=== PATIENT | male | born 1945 | race Caucasian/White ===

== ENCOUNTER → 2018-10-22 | Outpatient (CLI) | payer MEDICARE ==
[2018-10-22 14:38] LABS: Microalbumin, Urine Quant. 14.9 mg/L (0.000-20.000)
== END | disposition home or self-care (01) ==
LOC: LAB SHORT 09:33 → LAB 09:33
PROVIDERS: Internal Medicine
DX: Z12.5 Encounter for screening for malignant neoplasm of prostate (principal); E78.5 Hyperlipidemia, unspecified; E11.9 Type 2 diabetes mellitus without complications
CPT/HCPCS: 81050; 82043

== ENCOUNTER 2025-02-01 09:21 | Day surgery (SDC) | payer OTHER ==
[~2025-02-01] VITALS: Ht 170.2 cm; Wt 74.0 kg
[~2025-02-01 09:21] MED LIST: ALOGLIPTIN25 M1 PO; AMLO5 PO; ASPI81CH PO; ATOR40TA PO; Aspir 8181 MG PO; BASAGLAR K100 UNIT/1; Balanced Salt Epinephrine Irrigation Solution 500 mL IR SCH; CLOP75 PO; Diazepam 2 MG Tab PO PRN; JANUMET 50-1,01 EACH PO; LISI10 PO; LISINOPRIL-HCT1 EAC1 PO; Levitra20 MG PO; Lidocaine HCl/Pf 1% 5 ML VIAL XX SCH; METFORMIN HCL500 M2 PO; METO10 PO; Moxifloxacin HCL 0.5 MG/0.1 ML 0.4MLSYR RIGHTEYE SCH; OMEP20ER PO; Ondansetron 4 MG SoluTab MM PRN; PHENYLEPHRINE\\TROPICAMIDE\\TETRACAINE OPHTHALMIC DILATING SOLN RIGHTEYE PRN; PRAVACHOL20 MG PO; PRAVASTATIN SOD20 MG PO; Povidone-Iodine 450 DROP/30 ML Solution ONE; Povidone-Iodine 450 DROP/30 ML Solution RIGHTEYE SCH; Prinivil10 MG PO; SYNJARDY 12.5-1 EAC3 PO; Tetracaine HCl/Pf 0.5% Opth Soln 4 ml ONE; diazePAM 5 MG,diazePAM 2 MG PO SCH
[2025-02-01] MEDS ORDERED: Diazepam 2 MG Tab ONE (09:50)
[2025-02-01] MEDS ORDERED: Diazepam 5 MG Tab ONE (09:51)
--- NOTE | 2025-02-01 10:13 | NUR ---
02/01/25 1013 Narendra Kimball CALL LIGHT WITHIN REACH. TETRACAIN IN RIGHT EYE AT 1008 IKER IN AT 1010
--- NOTE | 2025-02-01 11:08 | NUR ---
02/01/25 1108 Daylin Inman BP-123/[id number] [id number]
--- NOTE | 2025-02-01 11:49 | NUR ---
02/01/25 1149 JANAK MORENO PT SON AND IN FOR DC INSTRUCTINS. COPY OF DC INSTRUCTIONS GIVEN TO SON WELL PT VERY MI'KMAQ AND APPEARS TO HAVE ISSUES WITH MEMORY. ALL VERY PLEASANT
[2025-02-01 11:50] VITALS: BP 125/68
== END 2025-02-01 11:48 | disposition home or self-care (01) ==
LOC: ORSCSDS 09:21
PROVIDERS: Student in an Organized Health Care Education/Training Program
PROC: 08RJ3JZ Replacement of Right Lens with Synthetic Substitute, Percutaneous Approach (ICD-10-PCS; principal; 2025-02-01 11:00)
DX: E11.36 Type 2 diabetes mellitus with diabetic cataract (principal); H25.813 Combined forms of age-related cataract, bilateral; H35.3221 Exudative age-related macular degeneration, left eye, with active choroidal neovascularization; H52.201 Unspecified astigmatism, right eye; Z87.891 Personal history of nicotine dependence; H35.3112 Nonexudative age-related macular degeneration, right eye, intermediate dry stage; Z79.899 Other long term (current) drug therapy
CPT/HCPCS: 82947; A9270; V2632

== ENCOUNTER 2025-02-06 13:43 | Emergency (ER) | payer OTHER ==
[~2025-02-06] VITALS: Ht 170.2 cm; Wt 73.9 kg
[~2025-02-06 13:43] MED LIST changes: -Balanced Salt Epinephrine Irrigation Solution 500 mL IR SCH; -Diazepam 2 MG Tab PO PRN; -Lidocaine HCl/Pf 1% 5 ML VIAL XX SCH; -Moxifloxacin HCL 0.5 MG/0.1 ML 0.4MLSYR RIGHTEYE SCH; -Ondansetron 4 MG SoluTab MM PRN; -PHENYLEPHRINE\\TROPICAMIDE\\TETRACAINE OPHTHALMIC DILATING SOLN RIGHTEYE PRN; -Povidone-Iodine 450 DROP/30 ML Solution ONE; -Povidone-Iodine 450 DROP/30 ML Solution RIGHTEYE SCH; -Tetracaine HCl/Pf 0.5% Opth Soln 4 ml ONE; -diazePAM 5 MG,diazePAM 2 MG PO SCH
[2025-02-06 14:44] LABS: BASOPHILS ABSOLUTE AUTO 0.07 K/mm3 (0.00-0.23); BASOPHILS PERCENT AUTO 1 % (0-2); EOSINOPHILS ABSOLUTE AUTO 0.03 K/mm3 (0.00-0.68); EOSINOPHILS PERCENT AUTO 0 % (0-6); Hematocrit 35.6 % (37.0-53.0); Hemoglobin 11.5 g/dL (13.5-17.5); IMMATURE GRAN ABSOLUTE AUTO 0.04 K/mm3 (0.00-0.10); IMMATURE GRAN PERCENT AUTO 0 % (0-1); LYMPHOCYTES ABSOLUTE AUTO 0.94 K/mm3 (0.84-5.20); LYMPHOCYTES PERCENT AUTO 10 % (21-46); MONOCYTES ABSOLUTE AUTO 0.92 K/mm3 (0.16-1.47); MONOCYTES PERCENT AUTO 10 % (4-13); Mean Corpuscular HGB 29.3 pg (26.0-34.0); Mean Corpuscular HGB Conc 32.3 g/dL (31.5-36.5); Mean Corpuscular Volume 91 fL (80-100); Mean Platelet Volume 8.6 fL (9.1-12.4); NEUTROPHILS ABSOLUTE AUTO 7.62 K/mm3 (1.96-9.15); NEUTROPHILS PERCENT AUTO 79 % (41-73); Platelet Count 327 K/mm3 (150-400); RDW Coefficient Variation 14.1 % (11.7-14.2); RDW Standard Deviation 46.1 fL (35.1-46.3); Red Blood Cell Count 3.92 M/mm3 (4.30-5.90); White Blood Cell Count 9.62 K/mm3 (4.00-11.30)
[2025-02-06 14:57] LABS: Albumin, Blood 3.4 g/dL (3.4-5.0); Albumin/Globulin Ratio 0.8 (0.8-1.8); Bilirubin, Total 0.4 mg/dL (0.1-1.0); Bun/Creatinine Ratio 19.4 (12.0-20.0); Calcium, Blood 9.1 mg/dL (8.5-10.1); Creatinine, Blood 1.08 mg/dL (0.60-1.20); Globulin, Blood 4.3 g/dL (2.2-4.0); Potassium, Blood 3.7 mmol/L (3.5-5.5); Total Protein, Blood 7.7 g/dL (6.4-8.2)
[2025-02-06 17:45] VITALS: BP 140/79
[2025-02-06] MEDS ORDERED: Dexamethasone Sodium Phosphate 4 MG/ML 1ML Vial IV ONE (17:55)
[2025-02-06] MEDS ORDERED: Insulin Regular 100 Unit/ML 1ML Dose IV ONE (17:55)
[2025-02-06] MEDS ORDERED: DEXA2 PO (18:43)
== END 2025-02-06 19:13 | disposition home or self-care (01) ==
LOC: ER 13:43
PROVIDERS: Emergency Medicine
DX: G93.9 Disorder of brain, unspecified (principal); R91.8 Other nonspecific abnormal finding of lung field; E11.65 Type 2 diabetes mellitus with hyperglycemia; Z79.82 Long term (current) use of aspirin; Z79.84 Long term (current) use of oral hypoglycemic drugs; Z79.899 Other long term (current) drug therapy
CPT/HCPCS: 70450; 70553; 71045; 80053; 83721; 85025; 93005; 93010; 93880; 96374-59; 99285-25; A9579; J1100; J1815

== ENCOUNTER 2025-06-28 07:50 | Day surgery (SDC) | payer OTHER ==
[~2025-06-28] VITALS: Ht 170.2 cm; Wt 79.5 kg
[~2025-06-28 07:50] MED LIST changes: +Balanced Salt Epinephrine Irrigation Solution 500 mL IR SCH; +DEXA2 PO; +Moxifloxacin HCL 0.5 MG/0.1 ML 0.4MLSYR LEFTEYE SCH; +Ondansetron 4 MG SoluTab MM PRN; +PHENYLEPHRINE\\TROPICAMIDE\\TETRACAINE OPHTHALMIC DILATING SOLN LEFTEYE PRN; +Povidone-Iodine 450 DROP/30 ML Solution LEFTEYE SCH; +Povidone-Iodine 450 DROP/30 ML Solution ONE; +Tetracaine HCl/Pf 0.5% Opth Soln 4 ml ONE; +diazePAM 5 MG,diazePAM 2 MG PO SCH
[2025-06-28] MEDS ORDERED: Tetracaine HCl 0.5% Opth Soln 15 ml LEFTEYE ONE (09:02)
--- NOTE | 2025-06-28 09:07 | NUR ---
06/28/25 0907 Cecily Linder 142/80 O2 96% HR 60 RR 18
[2025-06-28 09:25] VITALS: BP 144/88
== END 2025-06-28 09:34 | disposition home or self-care (01) ==
LOC: ORSCSDS 07:50
PROVIDERS: Student in an Organized Health Care Education/Training Program
PROC: 08RK3JZ Replacement of Left Lens with Synthetic Substitute, Percutaneous Approach (ICD-10-PCS; principal; 2025-06-28 09:30)
DX: E11.36 Type 2 diabetes mellitus with diabetic cataract (principal); H25.812 Combined forms of age-related cataract, left eye; Z96.1 Presence of intraocular lens; Z79.84 Long term (current) use of oral hypoglycemic drugs; Z79.82 Long term (current) use of aspirin; Z79.899 Other long term (current) drug therapy; Z87.891 Personal history of nicotine dependence
CPT/HCPCS: A9270; V2632